=== PATIENT | female | born 1945 | race Caucasian/White ===

== ENCOUNTER → 2017-01-28 | Outpatient (CLI) | payer OTHER | LOC: CT 09:34 | DX: C96.A Histiocytic sarcoma (principal); C49.20 Malignant neoplasm of connective and soft tissue of unspecified lower limb, including hip; Z98.890 Other specified postprocedural states | CPT/HCPCS: 36415; 71260; 73701; 82565; 84520; J7050; Q9963 ==

== ENCOUNTER → 2017-05-01 | Outpatient (CLI) | payer OTHER | LOC: KOH-I 15:41 | DX: M54.2 Cervicalgia (principal); M54.5 Low back pain; M47.892 Other spondylosis, cervical region; M41.86 Other forms of scoliosis, lumbar region; M85.88 Other specified disorders of bone density and structure, other site; M48.06 Spinal stenosis, lumbar region | CPT/HCPCS: 72050; 72110 ==

== ENCOUNTER → 2020-11-08 | Outpatient (CLI) | payer MEDICARE ==
[~2020-11-08] MED LIST: ELIQUIS 2.5 MG2.5 MG PO; FERROUS SULFAT325 M2 PO; FISH OIL PEARL1 EAC1 PO; GABAPENTIN600 MG PO; LEVOTHYROXINE125 MC1 PO; OMEPRAZOLE20 MG PO; PERCOCET 10-321 EACH PO
[2020-11-08 10:14] LABS: HEMOGLOBIN 12.7 gm/dl (12.3-15.3); RED BLOOD COUNT 4.1 M/UL (4.00-5.10); WHITE BLOOD COUNT 5.6 K/UL (4.5-11.0)
[2020-11-08 10:32] LABS: BUN/CREATININE RATIO 17 (0-10)
== END ==
LOC: EDSTATUS 09:00 → OPSV2 09:00
PROVIDERS: Orthopaedic Surgery
DX: Z01.818 Encounter for other preprocedural examination (principal); M17.11 Unilateral primary osteoarthritis, right knee; R00.1 Bradycardia, unspecified; I44.4 Left anterior fascicular block; R94.31 Abnormal electrocardiogram [ECG] [EKG]
CPT/HCPCS: 80048; 85025; 87081; 93005

== ENCOUNTER → 2020-11-21 | Outpatient (CLI) | payer MEDICARE ==
[2020-11-21 10:07] LABS: BUN/CREATININE RATIO 19 (0-10)
== END ==
LOC: LAB 09:13
PROVIDERS: Orthopaedic Surgery
DX: Z01.812 Encounter for preprocedural laboratory examination (principal)
CPT/HCPCS: 36415; 80048; 86850; 86900; 86901

== ENCOUNTER 2020-11-22 06:50 | Day surgery (SDC) | payer MEDICARE ==
[~2020-11-22 06:50] MED LIST changes: -ELIQUIS 2.5 MG2.5 MG PO; -FISH OIL PEARL1 EAC1 PO; -GABAPENTIN600 MG PO; -LEVOTHYROXINE125 MC1 PO; -OMEPRAZOLE20 MG PO; -PERCOCET 10-321 EACH PO
[2020-11-22] MEDS ORDERED: GABAPENTIN600 MG PO (07:39)
[2020-11-22] MEDS ORDERED: LEVOTHYROXINE125 MC1 PO (07:39)
[2020-11-22] MEDS ORDERED: FISH OIL PEARL1 EAC1 PO (07:40)
[2020-11-22] MEDS ORDERED: OMEPRAZOLE20 MG PO (07:43)
[2020-11-22] MEDS ORDERED: PERCOCET 10-321 EACH PO (08:19)
[2020-11-23 04:26] LABS: RED BLOOD COUNT 3.52 M/UL (4.00-5.10); WHITE BLOOD COUNT 8.1 K/UL (4.5-11.0)
[2020-11-23 04:44] LABS: BUN/CREATININE RATIO 14 (0-10)
[2020-11-23] MEDS ORDERED: ELIQUIS 2.5 MG2.5 MG PO (10:11)
== END 2020-11-23 18:26 | disposition home or self-care (01) ==
LOC: M/S 06:50 → OR 06:50 → M/S 11:23 → OR 11:30
PROVIDERS: Orthopaedic Surgery
PROC: 0SRC0J9 Replacement of Right Knee Joint with Synthetic Substitute, Cemented, Open Approach (ICD-10-PCS; principal; 2020-11-22 08:15)
DX: M17.11 Unilateral primary osteoarthritis, right knee (principal); R00.1 Bradycardia, unspecified; K21.9 Gastro-esophageal reflux disease without esophagitis; E78.5 Hyperlipidemia, unspecified; G47.30 Sleep apnea, unspecified; F32.9 Major depressive disorder, single episode, unspecified; E03.9 Hypothyroidism, unspecified; Z88.1 Allergy status to other antibiotic agents; Z79.899 Other long term (current) drug therapy; Z20.822 Contact with and (suspected) exposure to COVID-19
CPT/HCPCS: 36415; 73560; 80048; 85027; 97110; 97110-GP-CQ; 97116-GP-CQ; 97162; 97166; 97530-GP-CQ; 97535; C1776; J0690; J1170; J1885; J2001; J2270; J2704; J2710; J3010; J3370; J7120

== ENCOUNTER → 2021-07-03 | Outpatient (CLI) | payer MEDICARE ==
[~2021-07-03] MED LIST changes: +ELIQUIS 2.5 MG2.5 MG PO; +FISH OIL PEARL1 EAC1 PO; +GABAPENTIN600 MG PO; +LEVOTHYROXINE125 MC1 PO; +OMEPRAZOLE20 MG PO; +PERCOCET 10-321 EACH PO
== END ==
LOC: KOH-I 11:26
DX: R05 Cough (principal); K44.9 Diaphragmatic hernia without obstruction or gangrene
CPT/HCPCS: 71046

== ENCOUNTER → 2021-08-01 | Outpatient (CLI) | payer MEDICARE | LOC: HEART 5 08:30 | DX: I20.8 Other forms of angina pectoris (principal); R53.83 Other fatigue; R06.02 Shortness of breath; R94.39 Abnormal result of other cardiovascular function study | CPT/HCPCS: 78452; A9502; J2785 ==

== ENCOUNTER 2022-06-18 11:13 | Emergency (ER) | payer MEDICARE ==
[~2022-06-18] VITALS: Ht 154.9 cm; Wt 72.6 kg
[2022-06-18 12:19] LABS: HEMOGLOBIN 11.3 gm/dl (12.3-15.3); RED BLOOD COUNT 4.2 M/UL (4.00-5.10); WHITE BLOOD COUNT 3.4 K/UL (4.5-11.0)
[2022-06-18 12:49] LABS: BUN/CREATININE RATIO 13 (0-10)
== END 2022-06-18 15:18 | disposition home or self-care (01) ==
LOC: ER1 11:13
PROVIDERS: Physician Assistant
DX: U07.1 COVID-19 (principal); Z23 Encounter for immunization; Z88.1 Allergy status to other antibiotic agents
CPT/HCPCS: 0240U; 71045; 80053; 81001; 82550; 82553; 83605; 83690; 84484; 85025; 87086; 93005; 99284; M0222